=== PATIENT | male | born 1995 | race Caucasian/White ===

== ENCOUNTER 2021-12-31 16:42 | Emergency (ER) | payer OTHER ==
[2021-12-31 16:57] VITALS: BP 110/73; PULSE 86; TEMP 98.3; BMI 33.3
[2021-12-31] MEDS ORDERED: LIDOCAINE 5% TOPICAL PATCH TP ONE (18:03)
[2021-12-31] MEDS ORDERED: KETOROLAC TROMETHAMINE 30 MG/1 ML VIAL IM ONE (18:03)
[2021-12-31] MEDS ORDERED: LIDOCAINE 5% TOPICAL PATCH ONE (18:21)
[2021-12-31] MEDS ORDERED: KETOROLAC TROMETHAMINE 30 MG/1 ML VIAL ONE (18:21)
[2022-01-01] MEDS ORDERED: LIDOCAINE PATCH REMOVAL MC SCH (06:00)
== END 2021-12-31 19:17 | disposition home or self-care (01) ==
LOC: JERFT 16:42
PROC: 3E023GC Introduction of Other Therapeutic Substance into Muscle, Percutaneous Approach (ICD-10-PCS; principal; 2021-12-31)
DX: M54.2 Cervicalgia (principal); M54.50 Low back pain, unspecified; M25.561 Pain in right knee; V49.40XA Driver injured in collision with unspecified motor vehicles in traffic accident, initial encounter
CPT/HCPCS: 72070-TC-FY; 72100-TC-FY; 73564-TC-RT-FY; 99284-25